=== PATIENT | male | born 1960 | race African-American/Black ===

== ENCOUNTER → 2017-10-29 | Outpatient (CLI) | payer OTHER ==
--- NOTE | 2017-10-30 02:17 | Diagnostic Imaging Report ---
Exam: Lumbar spine MRI without IV contrast History: Difficulty walking. Comparison studies: Lumbar spine MRI 06/19/2017 Technique: Sagittal and axial T2 , sagittal T1 and IR, axial spin density oblique. Coronal T2 FLAIR Intravenous contrast: None Findings: Number of lumbar vertebral bodies: 5. Alignment: Normal lordosis. No scoliosis. Soft tissues: Postsurgical changes in the dorsal lumbar soft tissues at L3-L4 and at T11-T12. Paraspinal muscles: No signal abnormalities. Well-preserved. No atrophic changes Lower thoracic cord: Normal in signal and morphology. The tip of the conus is at L2. Cauda equina: No masses. No arachnoiditis. Vertebrae: No compression fractures, infection or neoplasm. Degenerative changes: T11-T12: Moderately degenerated disc. Surgical changes of decompressive laminotomies. Disc bulge with small central disc protrusion result in mild canal and bilateral foraminal stenosis. T12-L1: Patent canal and foramina. L1-L2: Mild facet arthrosis. Patent canal and foramina. L2-L3: Canal mildly narrowed by prominent dorsal epidural fat. Symmetric bulging disc and mild facet arthrosis do not result in significant foraminal or degenerative canal stenosis. L3-L4: Mildly degenerated disc. Symmetric disc bulge and moderate bilateral facet arthrosis with scar tissue in the dorsal epidural space and thickened ligamentum flavum with mild canal narrowing and moderate right and mild left foraminal stenosis. Persistent facet synovitis with right extraspinal synovial cyst and mild widening of the facet joints by joint effusions. L4-L5: Symmetric bulging disc and mild facet arthrosis without significant canal or foraminal stenosis. Unchanged small bilateral extraspinal synovial cysts. L5-S1: Symmetric bulging disc and severe bilateral facet arthrosis without significant canal or foraminal stenosis. IMPRESSION: No significant changes from the previous lumbar spine MRI of 06/19/2017. 1. At T10-T11 there are surgical changes with laminotomies, moderate disc degeneration and mild degenerative canal and foraminal stenosis. 2. At L3-L4 there are surgical changes with laminotomies, mild canal narrowing, moderate right and mild left foraminal stenosis and severe facet arthrosis with associated facet synovitis. 3. Severe facet arthrosis at L5-S1. Signed by: Dr. Bobby King M.D. on 10/30/2017 2:14 AM
== END ==
LOC: MRI 14:22
PROVIDERS: ATTEND Psychiatry & Neurology Neurology
DX: R26.2 Difficulty in walking, not elsewhere classified (principal)
CPT/HCPCS: 72148